=== PATIENT | female | born 1950 | race Caucasian/White ===

== ENCOUNTER 2017-10-10 16:04 | Inpatient (IN) | payer OTHER, MEDICARE ==
[~2017-10-10] VITALS: Ht 165.1 cm; Wt 111.4 kg
[2017-10-10 17:14] LABS: BASOPHIL (%) 0.2 % (0-1); EOSINOPHIL (%) 0 % (0-5); HEMATOCRIT 37.1 % (36.0-46.0); HEMOGLOBIN 12.8 G/DL (11.9-15.5); IMMATURE GRANULOCYTE (%) 0.5 % (0.0-0.7); LYMPHOCYTE (%) 7.3 % (15-42); LYMPHOCYTE COUNT 0.4 K/uL (1.0-2.8); MCH 29.4 PG (29.0-34.0); MCHC 34.5 G/DL (30.0-36.0); MCV 85.1 FL (83-99); MONOCYTE (%) 4.6 % (3-12); MONOCYTE COUNT 0.3 K/uL (0-0.8); NEUTROPHIL (%) 87.4 % (45-76); NEUTROPHIL COUNT 5.3 K/uL (1.8-6.4); PLATELET COUNT 167 K/uL (156-360); RBC DIS.WIDTH-CV 13.6 % (11.8-14.6); RBC DIS.WIDTH-SD 42.5 % (39-53); RED BLOOD COUNT 4.36 M/uL (3.80-5.20)
[2017-10-10 17:22] LABS: CHLORIDE 91 mEq/L (99-109); POTASSIUM 2.7 mEq/L (3.7-5.4); SODIUM 130 mEq/L (136-147)
[2017-10-10 17:24] LABS: GLUCOSE 150 mg/dL (70-99)
[2017-10-10 17:28] LABS: GFR ESTIMATE (CALCULATED) > 59 mL/min/
[2017-10-10 17:29] LABS: UREA NITROGEN (BUN) 20 mg/dL (9-23)
[2017-10-10 18:46] LABS: TROP-I INTERPRETATION NEGATIVE; TROPONIN-I 0.05 ng/mL (0.0-0.30)
[2017-10-10 18:52] LABS: ALBUMIN 3.9 g/dL (3.2-4.8)
[2017-10-10 18:55] LABS: TOTAL PROTEIN 7.2 g/dL (6.4-8.3)
[2017-10-10 18:57] LABS: TOTAL BILIRUBIN 0.6 mg/dL (0.0-1.0)
[2017-10-10 18:58] LABS: ALKALINE PHOSPHATASE 81 IU/L (3-129); INTER. NORMALIZED RATIO 1.5
[2017-10-10 19:00] LABS: AST (GOT) 55 IU/L (2-34); DIRECT BILIRUBIN 0.3 mg/dL (0.0-0.3); PTT 30.7 SEC (25-37)
[2017-10-10 19:01] LABS: ALT (GPT) 29 IU/L (3-49)
[2017-10-10 21:46] LABS: APPEARANCE CLEAR ((CLEAR)); BILIRUBIN NEGATIVE; BLOOD NEGATIVE; COLOR YELLOW ((YELLOW)); GLUCOSE (STRIP) NEGATIVE; KETONES NEGATIVE; LEUKOCYTES NEGATIVE; NITRITE NEGATIVE; PROTEIN (STRIP) 30; UCUL ADDED? NO; UROBILINOGEN 0.2 MG/DL (0.2-1.0)
[2017-10-10] MEDS ORDERED: LOVASTATIN40 MG PO (23:15)
[2017-10-10] MEDS ORDERED: AMLODIPINE BESY10 MG PO (23:16)
[2017-10-10] MEDS ORDERED: HYDROCHLOROTHIA25 MG PO (23:16)
[2017-10-10] MEDS ORDERED: METOPROLOL TAR100 MG PO (23:17)
[2017-10-10] MEDS ORDERED: CITALOPRAM HBR20 MG PO (23:18)
[2017-10-10] MEDS ORDERED: HYDRALAZINE HCL25 MG PO (23:18)
[2017-10-10] MEDS ORDERED: WARFARIN SODIUM6 MG PO ×2 (23:22→23:25)
[2017-10-10 23:52] VITALS: BP 138/70
[2017-10-11 00:51] LABS: POTASSIUM 2.9 mEq/L (3.7-5.4)
[2017-10-11 06:50] LABS: HEMATOCRIT 34.9 % (36.0-46.0); HEMOGLOBIN 11.8 G/DL (11.9-15.5); MCH 29.5 PG (29.0-34.0); MCHC 33.8 G/DL (30.0-36.0); MCV 87.3 FL (83-99); PLATELET COUNT 128 K/uL (156-360); RBC DIS.WIDTH-SD 45.2 % (39-53)
[2017-10-11 07:20] LABS: CHLORIDE 97 MEQ/L (99-109); CREATININE 0.8 MG/DL (0.6-1.3); GFR ESTIMATE (CALCULATED) > 59 mL/min/; POTASSIUM 3.4 MEQ/L (3.7-5.4); SODIUM 134 MEQ/L (136-147); UREA NITROGEN (BUN) 13 mg/dL (9-23)
[2017-10-11 07:25] LABS: GLUCOSE 103 mg/dL (70-99)
[2017-10-11 07:46] VITALS: BP 131/61
[2017-10-11 11:05] LABS: INTER. NORMALIZED RATIO 1.6
[2017-10-11 16:31] VITALS: BP 127/61
[2017-10-11 22:59] VITALS: BP 143/78
[2017-10-12 07:03] LABS: BASOPHIL (%) 0.4 % (0-1); EOSINOPHIL (%) 0 % (0-5); HEMATOCRIT 35.4 % (36.0-46.0); HEMOGLOBIN 11.7 G/DL (11.9-15.5); IMMATURE GRANULOCYTE (%) 0.4 % (0.0-0.7); LYMPHOCYTE (%) 25.4 % (15-42); LYMPHOCYTE COUNT 0.7 K/uL (1.0-2.8); MCH 28.7 PG (29.0-34.0); MCHC 33.1 G/DL (30.0-36.0); MONOCYTE (%) 6.4 % (3-12); MONOCYTE COUNT 0.2 K/uL (0-0.8); NEUTROPHIL (%) 67.4 % (45-76); NEUTROPHIL COUNT 1.9 K/uL (1.8-6.4); PLATELET COUNT 134 K/uL (156-360); RBC DIS.WIDTH-CV 14.2 % (11.8-14.6); RBC DIS.WIDTH-SD 45.7 % (39-53); RED BLOOD COUNT 4.07 M/uL (3.80-5.20); WHITE BLOOD COUNT 2.8 K/uL (4.1-10.2)
[2017-10-12 07:05] LABS: INTER. NORMALIZED RATIO 1.7
[2017-10-12 07:20] LABS: CHLORIDE 99 MEQ/L (99-109); CREATININE 0.7 MG/DL (0.6-1.3); GFR ESTIMATE (CALCULATED) > 59 mL/min/; GLUCOSE 100 mg/dL (70-99); MAGNESIUM 1.7 mg/dl (1.3-2.7); POTASSIUM 3.9 MEQ/L (3.7-5.4); SODIUM 135 MEQ/L (136-147); UREA NITROGEN (BUN) 10 mg/dL (9-23)
[2017-10-12 07:58] VITALS: BP 124/61
[2017-10-12 16:23] VITALS: BP 139/62
[2017-10-12 23:47] VITALS: BP 130/61
[2017-10-13 06:33] LABS: HEMATOCRIT 34.2 % (36.0-46.0); HEMOGLOBIN 11.4 G/DL (11.9-15.5); MCH 28.9 PG (29.0-34.0); MCHC 33.3 G/DL (30.0-36.0); MCV 86.6 FL (83-99); PLATELET COUNT 110 K/uL (156-360); RBC DIS.WIDTH-CV 14.4 % (11.8-14.6); RED BLOOD COUNT 3.95 M/uL (3.80-5.20); WHITE BLOOD COUNT 2.3 K/uL (4.1-10.2)
[2017-10-13 06:41] LABS: INTER. NORMALIZED RATIO 2.2
[2017-10-13 07:00] LABS: CHLORIDE 97 MEQ/L (99-109); CREATININE 0.6 MG/DL (0.6-1.3); GFR ESTIMATE (CALCULATED) > 59 mL/min/; GLUCOSE 121 mg/dL (70-99); POTASSIUM 3.7 MEQ/L (3.7-5.4); SODIUM 133 MEQ/L (136-147); UREA NITROGEN (BUN) 9 mg/dL (9-23)
[2017-10-13 07:04] LABS: BASOPHIL (%) 0.4 % (0-1); EOSINOPHIL (%) 0 % (0-5); IMMATURE GRANULOCYTE (%) 0.4 % (0.0-0.7); LYMPHOCYTE (%) 20.2 % (15-42); LYMPHOCYTE COUNT 0.5 K/uL (1.0-2.8); MONOCYTE (%) 5.2 % (3-12); MONOCYTE COUNT 0.1 K/uL (0-0.8); NEUTROPHIL (%) 73.8 % (45-76); NEUTROPHIL COUNT 1.7 K/uL (1.8-6.4)
[2017-10-13 07:20] VITALS: BP 129/60
[2017-10-13 11:43] VITALS: BP 142/71
[2017-10-13 15:34] VITALS: BP 130/62
[2017-10-13 19:30] VITALS: BP 136/71
[2017-10-14 00:26] VITALS: BP 115/59
[2017-10-14 04:00] VITALS: BP 122/64
[2017-10-14 06:21] LABS: INTER. NORMALIZED RATIO 2.9
[2017-10-14 07:32] VITALS: BP 123/98
[2017-10-14 15:46] VITALS: BP 119/62
[2017-10-15] VITALS: BP 135/74
[2017-10-15 06:54] LABS: MCH 28.4 PG (29.0-34.0); MCHC 32.4 G/DL (30.0-36.0); MCV 87.9 FL (83-99); PLATELET COUNT 114 K/uL (156-360); RBC DIS.WIDTH-CV 14.6 % (11.8-14.6); RBC DIS.WIDTH-SD 47.1 % (39-53); RED BLOOD COUNT 3.87 M/uL (3.80-5.20); WHITE BLOOD COUNT 2.6 K/uL (4.1-10.2)
[2017-10-15 07:01] LABS: INTER. NORMALIZED RATIO 3.5
[2017-10-15 07:25] LABS: CHLORIDE 98 MEQ/L (99-109); CREATININE 0.6 MG/DL (0.6-1.3); GFR ESTIMATE (CALCULATED) > 59 mL/min/; GLUCOSE 95 mg/dL (70-99); POTASSIUM 3.8 MEQ/L (3.7-5.4); SODIUM 137 MEQ/L (136-147); UREA NITROGEN (BUN) 6 mg/dL (9-23)
[2017-10-15 07:27] LABS: PHOSPHORUS 3.1 mg/dL (2.5-4.9)
[2017-10-15 07:45] VITALS: BP 135/60
[2017-10-15 16:31] VITALS: BP 132/74
[2017-10-16 06:50] LABS: HEMOGLOBIN 11.3 G/DL (11.9-15.5); MCHC 32.3 G/DL (30.0-36.0); RBC DIS.WIDTH-SD 50.1 % (39-53); RED BLOOD COUNT 3.89 M/uL (3.80-5.20); WHITE BLOOD COUNT 3.1 K/uL (4.1-10.2)
[2017-10-16 06:53] LABS: INTER. NORMALIZED RATIO 3.7; PLATELET COUNT 157 K/uL (156-360)
[2017-10-16 07:19] LABS: CHLORIDE 102 MEQ/L (99-109); CREATININE 0.5 MG/DL (0.6-1.3); GFR ESTIMATE (CALCULATED) > 59 mL/min/; GLUCOSE 94 mg/dL (70-99); SODIUM 140 MEQ/L (136-147); UREA NITROGEN (BUN) 5 mg/dL (9-23)
[2017-10-16 07:44] VITALS: BP 143/75
[2017-10-16 16:04] VITALS: BP 132/62
[2017-10-16 17:33] LABS: BASE EXCESS 6.4 mEq/L (-3 to +3); BICARBONATE 30.5 mEq/L (22-26); CARBOXY HGB 1.6 % (0-5); COMMENTS - BLOOD GASES A+C+; DEVICE NC; METHEMOGLOBIN 1.5 % (0-1.5); O2 FLOW 5 L/MIN; PCO2 41 mm Hg (35-45); PO2 54 mm Hg (80-100); SITE RR; pH 7.48 (7.35-7.45)
[2017-10-16 23:33] VITALS: BP 124/60
[2017-10-17 06:50] LABS: INTER. NORMALIZED RATIO 3.6
[2017-10-17 06:51] LABS: HEMATOCRIT 33.8 % (36.0-46.0); MCH 28.9 PG (29.0-34.0); MCHC 32.5 G/DL (30.0-36.0); MCV 88.9 FL (83-99); RBC DIS.WIDTH-CV 14.7 % (11.8-14.6); RBC DIS.WIDTH-SD 47.8 % (39-53); WHITE BLOOD COUNT 3.5 K/uL (4.1-10.2)
[2017-10-17 06:55] LABS: PLATELET COUNT 208 K/uL (156-360)
[2017-10-17 07:05] VITALS: BP 157/79
[2017-10-17 07:12] LABS: CHLORIDE 100 MEQ/L (99-109); CREATININE 0.5 MG/DL (0.6-1.3); GFR ESTIMATE (CALCULATED) > 59 mL/min/; GLUCOSE 95 mg/dL (70-99); POTASSIUM 4.1 MEQ/L (3.7-5.4); SODIUM 139 MEQ/L (136-147); UREA NITROGEN (BUN) 6 mg/dL (9-23)
[2017-10-17 15:25] VITALS: BP 137/66
[2017-10-17 23:40] VITALS: BP 157/73
[2017-10-18 07:34] LABS: HEMATOCRIT 35.6 % (36.0-46.0); HEMOGLOBIN 11.6 G/DL (11.9-15.5); MCH 28.5 PG (29.0-34.0); MCHC 32.6 G/DL (30.0-36.0); MCV 87.5 FL (83-99); RBC DIS.WIDTH-CV 14.4 % (11.8-14.6); RBC DIS.WIDTH-SD 46.7 % (39-53); RED BLOOD COUNT 4.07 M/uL (3.80-5.20); WHITE BLOOD COUNT 5.5 K/uL (4.1-10.2)
[2017-10-18 07:35] LABS: PLATELET COUNT 301 K/uL (156-360)
[2017-10-18 08:00] VITALS: BP 140/66
[2017-10-18 08:02] LABS: CHLORIDE 101 MEQ/L (99-109); CREATININE 0.6 MG/DL (0.6-1.3); GFR ESTIMATE (CALCULATED) > 59 mL/min/; GLUCOSE 87 mg/dL (70-99); POTASSIUM 3.9 MEQ/L (3.7-5.4); SODIUM 139 MEQ/L (136-147); UREA NITROGEN (BUN) 9 mg/dL (9-23)
[2017-10-18 08:07] LABS: INTER. NORMALIZED RATIO 2.8
[2017-10-19 06:57] LABS: INTER. NORMALIZED RATIO 2.4
[2017-10-19 07:40] VITALS: BP 134/88
[2017-10-19] MEDS ORDERED: LEVOFLOXACIN750 MG PO (10:34)
[2017-10-19] MEDS ORDERED: OSELTAMIVIR PHO75 MG PO (10:34)
[2017-10-19] MEDS ORDERED: PREDNISONE20 MG PO (10:34)
== END 2017-10-19 12:55 | disposition home or self-care (01) | DRG 189 ==
LOC: EME 16:04 → ENRESERV 22:45 → EDOF 22:45 → 5EAST 22:45 → ENRESERV 23:10 → 5EAST 23:43 → ENPENDDIS 10-19 → 5EAST 10-19 12:55
PROVIDERS: Hospitalist; Internal Medicine; Internal Medicine Pulmonary Disease; Physician Assistant; Physician Assistant Medical
DX: J96.01 Acute respiratory failure with hypoxia (principal); J10.00 Influenza due to other identified influenza virus with unspecified type of pneumonia; E87.6 Hypokalemia; I10 Essential (primary) hypertension; E78.5 Hyperlipidemia, unspecified; F32.9 Major depressive disorder, single episode, unspecified; Z86.718 Personal history of other venous thrombosis and embolism; E87.1 Hypo-osmolality and hyponatremia; D70.9 Neutropenia, unspecified; J98.11 Atelectasis; E66.9 Obesity, unspecified; Z68.41 Body mass index [BMI] 40.0-44.9, adult; E83.39 Other disorders of phosphorus metabolism; Z86.711 Personal history of pulmonary embolism; Z79.01 Long term (current) use of anticoagulants; J98.01 Acute bronchospasm
CPT/HCPCS: 36600; 71045; 71046; 71275; 80048; 80076; 80202; 81003; 82803; 83605; 83735; 83880; 84100; 84132; 84484; 85025; 85027; 85379; 85610; 85730; 87040; 87070; 87205; 87449; 87502; 87641; 90686; 93005; 94010; 94640; 94640 76; 94799; 99202; 99281; 99285; J0456; J0692; J3370; J7030; J7512